=== PATIENT | female | born 1970 | race Caucasian/White ===

== ENCOUNTER 2017-10-01 09:06 | Inpatient (IN) | payer OTHER ==
[2017-10-01 09:10] VITALS: BMI 29.4
--- NOTE | 2017-10-01 10:33 | ED PDOC ---
HPI: Back Time Seen by Provider: 10/01/17 09:35 Chief Complaint (Nursing): Back Pain Chief Complaint (Provider): back pain History Per: Patient History/Exam Limitations: no limitations Current Symptoms Are (Timing): Still Present Quality Of Discomfort: Sharp Severity: Moderate Associated Symptoms: None Additional Complaint(s): 47yo female presents with worsening and severe low back pain associated with tingling to her legs. Has prior extensive spinal history with cervical fusion and spinal stimulator. Denies fever, trauma or urinary symptoms. Past Medical History Reviewed: Historical Data, Nursing Documentation, Vital Signs Vital Signs: Last Vital Signs Temp 98.5 F 10/01/17 09:10 Pulse 92 H 10/01/17 09:10 Resp 16 10/01/17 09:10 BP 140/93 H 10/01/17 09:10 Pulse Ox 98 10/01/17 09:10 - Medical History PMH: Arthritis, Crohn's Disease Denies: HIV, Chronic Kidney Disease - Surgical History Surgical History: Tonsillectomy Other surgeries: spinal surgeries Dr concepcion - Family History Family History: States: Unknown Family Hx - Social History Drugs: Denies - Allergies Allergies/Adverse Reactions: Allergies Allergy/AdvReac Type Severity Reaction Status Date / Time No Known Allergies Allergy Verified 10/01/17 09:20 Review of Systems Constitutional: Negative for: Fever, Chills ENT: Negative for: Throat Pain Respiratory: Negative for: Cough, Shortness of Breath Gastrointestinal: Negative for: Nausea Genitourinary Female: Negative for: Dysuria, Frequency Musculoskeletal: Positive for: Neck Pain, Back Pain, Leg Pain Skin: Negative for: Rash, Lesions, Jaundice Neurological: Positive for: Numbness. Negative for: Weakness, Headache, Dizziness Psych: Negative for: Suicidal ideation Physical Exam - Reviewed Nursing Documentation Reviewed: Yes Vital Signs Reviewed: Yes - Physical Exam Appears: Positive for: Well, Non-toxic Head Exam: Positive for: ATRAUMATIC Skin: Positive for: Normal Color, Warm, Dry Eye Exam: Positive for: Normal appearance Neck: Positive for: Decreased ROM Cardiovascular/Chest: Negative for: Tachycardia Respiratory: Negative for: Respiratory Distress Back: Positive for: Decreased ROM, Muscle Spasm Extremity: Positive for: Normal ROM Neurologic/Psych: Negative for: Motor/Sensory Deficits, Aphasia, Facial Droop - ECG O2 Sat by Pulse Oximetry: 98 Medical Decision Making Medical Decision Making: patient w persistent severe pain despite optimal outpatient pain management admit Dr Saavedra for further testing and workup, consult neurosurg basic labs ordered and pending Disposition - Clinical Impression Clinical Impression: Back pain - Patient ED Disposition Is Patient to be Admitted: Yes - Disposition Disposition Time: 10:30 Condition: STABLE Forms: [employer] (Cameroonian) - Pt Status Changed To: Hospital Disposition Of: Inpatient - Admit Certification Admit to Inpatient:: After my assessment, the patient will require hospitalization for at least two midnights. This is because of the severity of symptoms shown, intensity of services needed, and/or the medical risk in this patient being treated as an outpatient. - POA Present On Arrival: None
[2017-10-01 11:06] LABS: BASO # 0.1 K/uL (0.0-0.2); BASO % 0.9 % (0.0-2.0); EOS # 0.2 K/uL (0.0-0.7); EOS % 2.5 % (0.0-4.0); HEMOGLOBIN 14.5 g/dL (12.0-16.0); LYMPH # 1.7 K/uL (1.0-4.3); LYMPH % 26.7 % (20.0-40.0); MEAN CELL VOLUME 84.9 fl (81.0-99.0); MEAN CORPUSCULAR HEMOGLOBIN 29.5 pg (27.0-31.0); MEAN CORPUSCULAR HGB CONC 34.8 g/dL (33.0-37.0); MEAN PLATELET VOLUME 7.1 fl (7.2-11.7); MONO # 0.3 K/uL (0.0-0.8); MONO % 5.3 % (0.0-10.0); NEUT # 4.1 K/uL (1.8-7.0); NEUT % 64.6 % (50.0-75.0); RBC 4.9 Mil/uL (3.80-5.20); WHITE BLOOD COUNT 6.4 K/uL (4.8-10.8)
[2017-10-01 11:22] LABS: ALB/GLOB RATIO 1.2 (1.0-2.1); ALBUMIN 4.6 g/dL (3.5-5.0); ALT/SGPT 41 U/L (9-52); AST/SGOT 28 U/L (14-36); BLOOD UREA NITROGEN 17 mg/dl (7-17); CALCIUM 9.6 mg/dL (8.4-10.2); GFR AFRICAN-AMERICAN > 60; GFR NON-AFRICAN AMERICAN > 60
[2017-10-01 11:31] LABS: PARTIAL THROMBOPLASTIN TIME 32.7 Seconds (25.6-37.1); PROTHROMBIN TIME 11.3 Seconds (9.8-13.1)
[2017-10-01] MEDS ORDERED: TAPENTADOL HCL 50 MG PO PRN (11:46)
--- NOTE | 2017-10-01 11:51 | CP.PCM.HP ---
<Shaun Montenegro - Last Filed: 10/01/17 12:30> History of Present Illness - History of Present Illness History of Present Illness: 47yo female with PMhx of crohn's disease on remission and chronic pain, presents with worsening and severe low back pain associated with tingling and pain to her legs. Patient has prior extensive spinal history with cervical fusion and spinal stimulator and she has been able to control her neck and r/ arm pain with the stimulator that she has had for many years but has been unable to deal with her lower back pain recently, associated with paresthesias and radiating pain to LE. Denies fever, trauma, saddle anesthesia or urinary symptoms. Patient f/u with pain management and has been taking Tapentadol q4h and valium at bedtime with only partial improvement. As per patient she had MRI of lumbar spine done that shows lumbar disck herniations Present on Admission - Present on Admission Any Indicators Present on Admission: No Review of Systems - Review of Systems All systems: reviewed and no additional remarkable complaints except - Gastrointestinal Gastrointestinal: Dyspepsia - Musculoskeletal Musculoskeletal: Back Pain, Muscle Cramps, Neck Pain, Radiating Pain into Limb, Tingling Past Patient History - Infectious Disease Hx of Infectious Diseases: None - Tetanus Immunizations Tetanus Immunization: Unknown - Past Medical History & Family History Past Medical History?: Yes - Past Social History Drugs: Denies - CARDIAC Hx Cardiac Disorders: No - PULMONARY Hx Respiratory Disorders: No - NEUROLOGICAL Hx Neurological Disorder: No - HEENT Hx HEENT Problems: No - RENAL Hx Chronic Kidney Disease: No - ENDOCRINE/METABOLIC Hx Endocrine Disorders: No - HEMATOLOGICAL/ONCOLOGICAL Hx Human Immunodeficiency Virus (HIV): No - INTEGUMENTARY Hx Dermatological Problems: No - MUSCULOSKELETAL/RHEUMATOLOGICAL Hx Musculoskeletal Disorders: Yes (back/cervical surgery) - GASTROINTESTINAL Hx Crohn's Disease: Yes - GENITOURINARY/GYNECOLOGICAL Hx Genitourinary Disorders: No - PSYCHIATRIC Hx Psychophysiologic Disorder: No Hx Substance Use: No - SURGICAL HISTORY Hx Surgeries: Yes Hx Musculoskeletal Surgery: Yes Hx Tonsillectomy: Yes - ANESTHESIA Hx Anesthesia: Yes Hx Anesthesia Reactions: No Hx Malignant Hyperthermia: No Meds Allergies/Adverse Reactions: Allergies Allergy/AdvReac Type Severity Reaction Status Date / Time No Known Allergies Allergy Verified 10/01/17 09:20 Physical Exam - Constitutional Appears: Non-toxic, In Acute Distress (mild due to pain) - Eye Exam Eye Exam: EOMI, PERRL - ENT Exam ENT Exam: Mucous Membranes Moist - Respiratory Exam Respiratory Exam: Clear to Auscultation Bilateral, NORMAL BREATHING PATTERN. absent: Rales, Wheezes - Cardiovascular Exam Cardiovascular Exam: REGULAR RHYTHM, +S1, +S2. absent: Gallop - GI/Abdominal Exam GI & Abdominal Exam: Normal Bowel Sounds, Soft, Tenderness (Diffuse epigastric area). absent: Distended, Guarding, Rebound - Extremities Exam Extremities exam: Negative for: calf tenderness, pedal edema Additional comments: limited active ROM of B/L hip flexion due to weakness - Neurological Exam Neurological exam: Alert, Motor Sensory Deficit, Oriented x3 - Psychiatric Exam Psychiatric exam: Anxious - Skin Skin Exam: Normal Color, Warm Results - Vital Signs Recent Vital Signs: Last Vital Signs Temp 98.5 F 10/01/17 11:45 Pulse 74 10/01/17 11:45 Resp 18 10/01/17 11:45 BP 115/64 10/01/17 11:45 Pulse Ox 98 10/01/17 11:45 - Labs Result Diagrams: 10/01/17 11:01 10/01/17 11:01 Labs: Laboratory Results - last 24 hr 10/01/17 10/01/17 10/01/17 11:01 11:01 11:01 WBC 6.4 RBC 4.90 Hgb 14.5 Hct 41.6 MCV 84.9 D MCH 29.5 MCHC 34.8 RDW 14.0 Plt Count 359 MPV 7.1 L Neut % (Auto) 64.6 Lymph % (Auto) 26.7 [place] % (Auto) 5.3 Eos % (Auto) 2.5 Baso % (Auto) 0.9 Neut # (Auto) 4.1 Lymph # (Auto) 1.7 [place] # (Auto) 0.3 Eos # (Auto) 0.2 Baso # (Auto) 0.1 PT 11.3 INR 1.0 APTT 32.7 Sodium 142 Potassium 3.2 L Chloride 96 L Carbon Dioxide 29 Anion Gap 20 BUN 17 Creatinine 0.8 Est GFR ( Amer) > 60 Est GFR (Non-Af Amer) > 60 Random Glucose 108 H Calcium 9.6 Total Bilirubin 0.6 AST 28 ALT 41 Alkaline Phosphatase 68 Total Protein 8.3 H Albumin 4.6 Globulin 3.7 Albumin/Globulin Ratio 1.2 Assessment & Plan - Assessment and Plan (Free Text) Assessment: Intractable lower back pain with radiculopathy and functional limitations No PMHx of cardiac or resp disease ED labs reviewed: Unremarkable NeuroSx consult C/W Pain meds Preop labs ordered in advance for poss Sx intervention reg diet Patient is medically cleared for poss lumbar spine procedure if needed Will order one dose of tramadol stat since our Ph doesnt not have Tapentadol until patient's bring patient meds from home. <Osito Saavedra - Last Filed: 10/05/17 15:39> Results - Vital Signs Recent Vital Signs: Last Vital Signs Temp 97.9 F 10/04/17 15:55 Pulse 85 10/04/17 15:55 Resp 18 10/04/17 15:55 BP 117/74 10/04/17 15:55 Pulse Ox 98 10/04/17 15:55 - Labs Result Diagrams: 10/03/17 05:55 10/03/17 05:55 Assessment & Plan - Assessment and Plan (Free Text) Plan: I was present during evaluation and discussed with Dr Montenegro re plans of care , Osito Saavedra M.D.
[2017-10-01] MEDS ORDERED: Potassium Chloride 20 mEq ER Tab PO ONE ×2 (11:52→17:00)
[2017-10-01] MEDS: MESALAMINE 1.2 GM PO SCH ×2 (20:58→21:00)
[2017-10-01 21:39] LABS: BLOOD UREA NITROGEN 19 mg/dl (7-17); CALCIUM 9.5 mg/dL (8.4-10.2); GFR AFRICAN-AMERICAN > 60; GFR NON-AFRICAN AMERICAN > 60
[2017-10-01] MEDS ORDERED: NUCYNTA 75 MG PO PRN (22:00)
[2017-10-02] MEDS: Dextrose 5%/0.9% NS 1,000 ML IV SCH ×2 (05:47→22:30)
--- NOTE | 2017-10-02 07:37 | CP.PCM.CON ---
<Orlando Betts - Last Filed: 10/02/17 10:23> Meds Allergies/Adverse Reactions: Allergies Allergy/AdvReac Type Severity Reaction Status Date / Time No Known Allergies Allergy Verified 10/01/17 09:20 - Medications Medications: Current Medications Ascorbic Acid (Vitamin C 500 Mg Tab) 1 mg PO DAILY [facility] Last Admin: 10/02/17 09:11 Dose: Not Given Cholecalciferol (Vitamin D) 1,000 intlu PO DAILY [facility] Last Admin: 10/02/17 09:12 Dose: Not Given Cyanocobalamin (Vitamin B12 1000 Mcg Tab) 1,000 mcg PO DAILY [facility] Last Admin: 10/02/17 09:10 Dose: Not Given Diazepam (Valium) 10 mg PO HS PRN PRN Reason: Muscle spasm Last Admin: 10/01/17 22:40 Dose: 10 mg Gabapentin (Neurontin) 300 mg PO Q12 [facility] Last Admin: 10/02/17 09:10 Dose: Not Given Home Med (Mesalamine [Lialda]) 4.8 gm PO DAILY [facility] Last Admin: 10/02/17 09:10 Dose: Not Given Home Med (Patient's Own Medication) 1 unit PO Q6 PRN PRN Reason: Pain, severe (8-10) Dextrose/Sodium Chloride (Dextrose 5%/0.9% Ns 1000 Ml) 1,000 mls @ 60 mls/hr IV .[id number] [facility] Stop: 10/03/17 00:17 Last Admin: 10/02/17 05:47 Dose: 60 mls/hr Ibuprofen (Motrin Tab) 600 mg PO Q12 PRN PRN Reason: Pain, moderate (4-7) Ondansetron HCl (Zofran Inj) 4 mg IVP Q6 PRN PRN Reason: Nausea/Vomiting Last Admin: 10/01/17 15:13 Dose: 4 mg Pantoprazole Sodium (Protonix Ec Tab) 40 mg PO DAILY [facility] Last Admin: 10/02/17 09:10 Dose: Not Given Results - Vital Signs Recent Vital Signs: Last Vital Signs Temp 97.9 F 10/02/17 07:30 Pulse 65 10/02/17 07:30 Resp 18 10/02/17 07:30 BP 104/66 10/02/17 07:30 Pulse Ox 95 10/02/17 07:30 - Labs Result Diagrams: 10/01/17 11:01 10/01/17 21:15 Labs: Laboratory Results - last 24 hr 10/01/17 10/01/17 10/01/17 11:01 11:01 11:01 WBC 6.4 RBC 4.90 Hgb 14.5 Hct 41.6 MCV 84.9 D MCH 29.5 MCHC 34.8 RDW 14.0 Plt Count 359 MPV 7.1 L Neut % (Auto) 64.6 Lymph % (Auto) 26.7 [place] % (Auto) 5.3 Eos % (Auto) 2.5 Baso % (Auto) 0.9 Neut # (Auto) 4.1 Lymph # (Auto) 1.7 [place] # (Auto) 0.3 Eos # (Auto) 0.2 Baso # (Auto) 0.1 PT 11.3 INR 1.0 APTT 32.7 Sodium 142 Potassium 3.2 L Chloride 96 L Carbon Dioxide 29 Anion Gap 20 BUN 17 Creatinine 0.8 Est GFR ( Amer) > 60 Est GFR (Non-Af Amer) > 60 Random Glucose 108 H Calcium 9.6 Total Bilirubin 0.6 AST 28 ALT 41 Alkaline Phosphatase 68 Total Protein 8.3 H Albumin 4.6 Globulin 3.7 Albumin/Globulin Ratio 1.2 10/01/17 21:15 WBC RBC Hgb Hct MCV MCH MCHC RDW Plt Count MPV Neut % (Auto) Lymph % (Auto) [place] % (Auto) Eos % (Auto) Baso % (Auto) Neut # (Auto) Lymph # (Auto) [place] # (Auto) Eos # (Auto) Baso # (Auto) PT INR APTT Sodium 143 Potassium 3.8 Chloride 98 Carbon Dioxide 27 Anion Gap 22 H BUN 19 H Creatinine 0.9 Est GFR ( Amer) > 60 Est GFR (Non-Af Amer) > 60 Random Glucose 105 Calcium 9.5 Total Bilirubin AST ALT Alkaline Phosphatase Total Protein Albumin Globulin Albumin/Globulin Ratio Assessment & Plan (1) Lumbar pain with radiation down both legs Assessment and Plan: Lumbar MRI was reviewed in correlation to clinical findings. It was determined that the pathology was predominantly found at levels L4-5. Decision was made to perform L4-5 laminectomy, possible laminectomy of other levels. Status: Acute <Rashel Martinez Jr. - Last Filed: 10/02/17 12:26> History of Present Illness - History of Present Illness History of Present Illness: This is a 47 y/o female with PMHx of chron's dz ( in remission) , chronic neck and back pain s/p cervical and lumbar surgeries in the past few years who presents with renewed LBP that has progressed in severity since Fall 2016. She states that she has LBP that is usually 7/10 radiates to BL knees R>L and associated paresthesias and weakness. The symptoms have affected her daily life , disabling her from ambulating longer distances and daily activities. She states that she has attempted conservative measures as recommended but without relief. She denies bladder or bowel incontinence Past Patient History - Infectious Disease Hx of Infectious Diseases: None - Tetanus Immunizations Tetanus Immunization: Unknown - Past Medical History & Family History Past Medical History?: Yes - Past Social History Drugs: Denies - CARDIAC Hx Cardiac Disorders: No - PULMONARY Hx Respiratory Disorders: No - NEUROLOGICAL Hx Neurological Disorder: No - HEENT Hx HEENT Problems: No - RENAL Hx Chronic Kidney Disease: No - ENDOCRINE/METABOLIC Hx Endocrine Disorders: No - HEMATOLOGICAL/ONCOLOGICAL Hx Human Immunodeficiency Virus (HIV): No - INTEGUMENTARY Hx Dermatological Problems: No - MUSCULOSKELETAL/RHEUMATOLOGICAL Hx Musculoskeletal Disorders: Yes (back/cervical surgery) - GASTROINTESTINAL Hx Crohn's Disease: Yes - GENITOURINARY/GYNECOLOGICAL Hx Genitourinary Disorders: No - PSYCHIATRIC Hx Psychophysiologic Disorder: No Hx Substance Use: No - SURGICAL HISTORY Hx Surgeries: Yes Hx Musculoskeletal Surgery: Yes Hx Tonsillectomy: Yes - ANESTHESIA Hx Anesthesia: Yes Hx Anesthesia Reactions: No Hx Malignant Hyperthermia: No Meds - Medications Medications: Current Medications Ascorbic Acid (Vitamin C 500 Mg Tab) 1 mg PO DAILY [facility] Cholecalciferol (Vitamin D) 1,000 intlu PO DAILY [facility] Cyanocobalamin (Vitamin B12 1000 Mcg Tab) 1,000 mcg PO DAILY [facility] Diazepam (Valium) 10 mg PO HS PRN PRN Reason: Muscle spasm Last Admin: 10/01/17 22:40 Dose: 10 mg Gabapentin (Neurontin) 300 mg PO Q12 [facility] Last Admin: 10/01/17 20:59 Dose: 300 mg Home Med (Mesalamine [Lialda]) 4.8 gm PO DAILY [facility] Last Admin: 10/01/17 21:00 Dose: 4.8 gm Home Med (Patient's Own Medication) 1 unit PO Q6 PRN PRN Reason: Pain, severe (8-10) Dextrose/Sodium Chloride (Dextrose 5%/0.9% Ns 1000 Ml) 1,000 mls @ 60 mls/hr IV .[id number] [facility] Stop: 10/03/17 00:17 Last Admin: 10/02/17 05:47 Dose: 60 mls/hr Ibuprofen (Motrin Tab) 600 mg PO Q12 PRN PRN Reason: Pain, moderate (4-7) Ondansetron HCl (Zofran Inj) 4 mg IVP Q6 PRN PRN Reason: Nausea/Vomiting Last Admin: 10/01/17 15:13 Dose: 4 mg Pantoprazole Sodium (Protonix Ec Tab) 40 mg PO DAILY [facility] Physical Exam - Constitutional Appears: No Acute Distress - Neurological Exam Additional comments: A&OX3 CN intact TRAORE positive SLR BL R>L IP : 4/5 pain limited quad 4/5 HS: 5 PF/DF:L 5 BL sensation : decreased to LT on anterior R thigh neg clonus Results - Vital Signs Recent Vital Signs: Last Vital Signs Temp 97.9 F 10/02/17 07:30 Pulse 65 10/02/17 07:30 Resp 18 10/02/17 07:30 BP 104/66 10/02/17 07:30 Pulse Ox 95 10/02/17 07:30 - Labs Result Diagrams: 10/01/17 11:01 10/01/17 21:15 Labs: Laboratory Results - last 24 hr 10/01/17 10/01/17 10/01/17 11:01 11:01 11:01 WBC 6.4 RBC 4.90 Hgb 14.5 Hct 41.6 MCV 84.9 D MCH 29.5 MCHC 34.8 RDW 14.0 Plt Count 359 MPV 7.1 L Neut % (Auto) 64.6 Lymph % (Auto) 26.7 [place] % (Auto) 5.3 Eos % (Auto) 2.5 Baso % (Auto) 0.9 Neut # (Auto) 4.1 Lymph # (Auto) 1.7 [place] # (Auto) 0.3 Eos # (Auto) 0.2 Baso # (Auto) 0.1 PT 11.3 INR 1.0 APTT 32.7 Sodium 142 Potassium 3.2 L Chloride 96 L Carbon Dioxide 29 Anion Gap 20 BUN 17 Creatinine 0.8 Est GFR ( Amer) > 60 Est GFR (Non-Af Amer) > 60 Random Glucose 108 H Calcium 9.6 Total Bilirubin 0.6 AST 28 ALT 41 Alkaline Phosphatase 68 Total Protein 8.3 H Albumin 4.6 Globulin 3.7 Albumin/Globulin Ratio 1.2 10/01/17 21:15 WBC RBC Hgb Hct MCV MCH MCHC RDW Plt Count MPV Neut % (Auto) Lymph % (Auto) [place] % (Auto) Eos % (Auto) Baso % (Auto) Neut # (Auto) Lymph # (Auto) [place] # (Auto) Eos # (Auto) Baso # (Auto) PT INR APTT Sodium 143 Potassium 3.8 Chloride 98 Carbon Dioxide 27 Anion Gap 22 H BUN 19 H Creatinine 0.9 Est GFR ( Amer) > 60 Est GFR (Non-Af Amer) > 60 Random Glucose 105 Calcium 9.5 Total Bilirubin AST ALT Alkaline Phosphatase Total Protein Albumin Globulin Albumin/Globulin Ratio Assessment & Plan - Assessment and Plan (Free Text) Assessment: patient presented [place] [facility] with above mentioned S&S she presented in extremis unable to carry out daily activities due to severe pain. Due to her known LBP and pathology on imaging. Surgical intervention was suggested. Imaging reviewed and d/w patient. risks, benefits and alternatives explained to the patient. Risks such and infection hemorrhage, CSF leak, weakness, numbness failure of surgery and/or need for further surgery.
[2017-10-02] MEDS ORDERED: Lidocaine 1% Inj (20ml) ONE (08:00)
[2017-10-02] MEDS ORDERED: Lidocaine 2% w Epi 1:100,000 Inj IJ ONE (08:00)
[2017-10-02] MEDS ORDERED: Absorbable Gelatin Sponge Size 100 ONE (08:00)
[2017-10-02] MEDS ORDERED: Bacitracin Ointment 30 GM TUBE ONE (08:00)
[2017-10-02] MEDS ORDERED: Bupivacaine HCl 0.5% PF (30 ml) Inj ONE (08:00)
[2017-10-02] MEDS ORDERED: Thrombin Topical 5,000 Int Units Spray Kit ONE (08:01)
[2017-10-02] MEDS ORDERED: Phenylephrine 10 mg/ml Inj ONE (08:06)
[2017-10-02] MEDS ORDERED: Rocuronium 10 mg/ml (5 ml) ONE (08:16)
[2017-10-02] MEDS ORDERED: Succinylcholine 200 mg/10 ml Inj IV ONE (08:16)
[2017-10-02] MEDS ORDERED: Propofol 10 mg/ml Inj (20 ML) ONE (08:16)
[2017-10-02] MEDS ORDERED: Lidocaine 2% Jelly (5 ml) TOP ONE (08:21)
[2017-10-02] MEDS: MESALAMINE 1.2 GM PO SCH ×2 (09:10→16:39)
[2017-10-02] MEDS: Pantoprazole 40 mg EC Tab PO SCH ×2 (09:10→16:40)
[2017-10-02] MEDS: Cholecalciferol 1,000 INTLU TAB PO SCH ×2 (09:12→16:41)
[2017-10-02] MEDS ORDERED: Lactated Ringer's 1,000 ML IV ONE ×2 (09:45→11:43)
[2017-10-02] MEDS ORDERED: Midazolam 2 MG/2 ML VIAL ONE (09:57)
[2017-10-02] MEDS ORDERED: Lidocaine 2% w Epi 1:200,000 Pf Inj IJ ONE (10:12)
[2017-10-02] MEDS ORDERED: Absorbable Gelatin Sponge Size 100 TP ONE (10:12)
[2017-10-02] MEDS ORDERED: HEMOSTATIC MATRIX 10 ML DIS.NEEDLE TOP ONE (10:12)
[2017-10-02] MEDS ORDERED: Thrombin Topical 5,000 Int Units Spray Kit TOP ONE ×2 (10:12)
[2017-10-02] MEDS ORDERED: Desflurane Inhalation Anesthetic Liq (240 ml) ONE (10:17)
[2017-10-02] MEDS ORDERED: Ketamine 50 mg/ml Inj (10 ml) ONE (10:19)
[2017-10-02] MEDS ORDERED: Dexamethasone 4 mg/1 ml ONE (10:35)
--- NOTE | 2017-10-02 10:42 | CP.PCM.PN ---
<Shaun Montenegro - Last Filed: 10/02/17 11:50> Subjective - Date & Time of Evaluation Date of Evaluation: 10/02/17 Time of Evaluation: 08:55 - Subjective Subjective: Evaluated before Sx this morning. No acute distress, alert, awake in good spirits at bedside. No event overnight, Afebrile, pain controlled with meds. Denies vomiting, nausea. Objective - Vital Signs/Intake and Output Vital Signs (last 24 hours): Temp Pulse Resp BP Pulse Ox 97.9 F 65 18 104/66 95 10/02/17 07:30 10/02/17 07:30 10/02/17 07:30 10/02/17 07:30 10/02/17 07:30 - Medications Medications: Current Medications Ascorbic Acid (Vitamin C 500 Mg Tab) 1 mg PO DAILY [facility] Last Admin: 10/02/17 09:11 Dose: Not Given Cholecalciferol (Vitamin D) 1,000 intlu PO DAILY [facility] Last Admin: 10/02/17 09:12 Dose: Not Given Cyanocobalamin (Vitamin B12 1000 Mcg Tab) 1,000 mcg PO DAILY [facility] Last Admin: 10/02/17 09:10 Dose: Not Given Diazepam (Valium) 10 mg PO HS PRN PRN Reason: Muscle spasm Last Admin: 10/01/17 22:40 Dose: 10 mg Gabapentin (Neurontin) 300 mg PO Q12 [facility] Last Admin: 10/02/17 09:10 Dose: Not Given Home Med (Mesalamine [Lialda]) 4.8 gm PO DAILY [facility] Last Admin: 10/02/17 09:10 Dose: Not Given Home Med (Patient's Own Medication) 1 unit PO Q6 PRN PRN Reason: Pain, severe (8-10) Dextrose/Sodium Chloride (Dextrose 5%/0.9% Ns 1000 Ml) 1,000 mls @ 60 mls/hr IV .[id number] [facility] Stop: 10/03/17 00:17 Last Admin: 10/02/17 05:47 Dose: 60 mls/hr Ibuprofen (Motrin Tab) 600 mg PO Q12 PRN PRN Reason: Pain, moderate (4-7) Ondansetron HCl (Zofran Inj) 4 mg IVP Q6 PRN PRN Reason: Nausea/Vomiting Last Admin: 10/01/17 15:13 Dose: 4 mg Pantoprazole Sodium (Protonix Ec Tab) 40 mg PO DAILY [facility] Last Admin: 10/02/17 09:10 Dose: Not Given - Labs Labs: 10/01/17 11:01 10/01/17 21:15 PT 11.3 Seconds (9.8-13.1) 10/01/17 11:01 INR 1.0 (0.9-1.2) 10/01/17 11:01 APTT 32.7 Seconds (25.6-37.1) 10/01/17 11:01 - Constitutional Appears: Non-toxic, No Acute Distress - Eye Exam Eye Exam: PERRL - ENT Exam ENT Exam: Mucous Membranes Moist - Respiratory Exam Respiratory Exam: Clear to Ausculation Bilateral, NORMAL BREATHING PATTERN. absent: Decreased Breath Sounds, Rales, Respiratory Distress - Cardiovascular Exam Cardiovascular Exam: REGULAR RHYTHM, +S1, +S2. absent: Gallop - GI/Abdominal Exam GI & Abdominal Exam: Soft, Normal Bowel Sounds. absent: Distended, Guarding, Tenderness - Extremities Exam Extremities Exam: absent: Calf Tenderness, Pedal Edema Additional comments: limited ROM hips due to lower back pain - Neurological Exam Neurological Exam: Alert, Awake, Oriented x3 - Psychiatric Exam Psychiatric exam: Normal Affect, Normal Mood - Skin Skin Exam: Normal Color, Warm Assessment and Plan - Assessment and Plan (Free Text) Assessment: Intractable lower back pain with functional limitations Evaluated by NeurSx and scheduled for lumbar laminectomy this morning NPO since midnight Pain control Will revaluate after Sx. <Osito Saavedra - Last Filed: 10/05/17 15:40> Objective - Vital Signs/Intake and Output Vital Signs (last 24 hours): Temp Pulse Resp BP Pulse Ox 97.9 F 85 18 117/74 98 10/04/17 15:55 10/04/17 15:55 10/04/17 15:55 10/04/17 15:55 10/04/17 15:55 - Labs Labs: 10/03/17 05:55 10/03/17 05:55 PT 11.3 Seconds (9.8-13.1) 10/01/17 11:01 INR 1.0 (0.9-1.2) 10/01/17 11:01 APTT 32.7 Seconds (25.6-37.1) 10/01/17 11:01 Assessment and Plan - Assessment and Plan (Free Text) Plan: I was present during evaluation and discussed with Dr Montenegro re plans of care and tx. Osito Saavedra M.D.
--- NOTE | 2017-10-02 11:09 | RAD ---
PROCEDURE: Intraoperative Fluoroscopy. HISTORY: LUMBAR LAMINECTOMY FINDINGS: Fluoroscopic assistance was provided. 7.2 seconds fluoroscopy time utilized during this procedure. Radiation dose = 2.24 mGy Please refer to the operative report for additional details.
[2017-10-02] MEDS ORDERED: Normosol-R 1000 ML 1,000 ML IV ONE (11:43)
[2017-10-02] MEDS ORDERED: Naloxone 0.4 mg/ml Inj (Adult) IVP PRN (11:48)
--- NOTE | 2017-10-02 12:37 | PCM.SURG1 ---
Surgeon's Initial Post Op Note - Surgeon's Notes Surgeon: Benton Juares Warehouse Loader: Cherri CARR Type of Anesthesia: General Endo Anesthesia Administered By: Rip Pre-Operative Diagnosis: lumbar HNP Operative Findings: found to have nerve root cmopression and herniated disc at R L4-5 level Post-Operative Diagnosis: as above Operation Performed: decompressive laminectomy L4-5 with microdiscectomy Specimen/Specimens Removed: disc Estimated Blood Loss: EBL {In ML}: 20 Blood Products Given: N/A Drains Used: No Drains, Nick Mauricio (x1 ) Date of Surgery/Procedure: 10/02/17 Time of Surgery/Procedure: 10:00
[2017-10-02] MEDS: HYDROmorphone 0.5 mg/0.5 ml ISec IVP PRN ×2 (13:00→13:07)
[2017-10-02] MEDS: Lactated Ringer's 1,000 ML IV SCH ×2 (16:32→21:35)
--- NOTE | 2017-10-02 18:11 | OP ---
PROCEDURE DATE: 10/02/2017 PREOPERATIVE DIAGNOSIS: Lumbar spondylosis. POSTOPERATIVE DIAGNOSIS: Lumbar spondylosis. PROCEDURE: L4-L5 lumbar laminectomy. SURGEON: Benton Juares MD MEDICINAL CHEMIST: Rashel Martinez. Rashel Martinez is the physician ex assistant/program director who stayed throughout the case from the beginning to the end, helped me perform the surgery. Rashel Martinez. Rashel Martinez is the physician ex assistant/program director who stayed throughout the case from beginning to the end, helped me perform the surgery. Fluoroscopy has been used and microscopy has been used. DESCRIPTION OF PROCEDURE: The patient was brought to the operating room. Anesthetized with general endotracheal anesthesia. Placed in a prone position on the Nick table. Care was taken to protect all pressure points. Back of the lumbar area thoroughly prepped and draped in sterile manner after marking was consent for lumbar laminectomy at L4-L5. After prepping and draping the area, skin has been incised. Bleeding skin has been controlled by bipolar heavy equipment rental associate. After using a Bovie heavy equipment rental associate, paraspinal muscles have been detached, attachments of spinous process and lamina of L4-L5 bilaterally. Identification levels has been done with help of a fluoroscopy. By using a Leksell rongeur, the spinous process of L4-L5 have been removed. By using a high-speed drill lamina of L4-L5 and medial part of the facets of the L4-L5 have been drilled. By using a fine Kerrison punch, thinned out the lamina, medial part of the facets, buckled, thickened, and ligamentum flavum has been removed. Decompression has been achieved. After that hemostasis best achieved. Nick drain was placed in the wound. Brought out through a separate stab neck skin incision. Muscles and fascia were closed with 1 Vicryl, subcutaneous tissue with 3 Vicryl, skin had been closed with intradermal 3 Vicryl stitches. The patient tolerated the procedure. After the procedure, mobilized to the recovery room in stabilized condition. Benton Juares MD
[2017-10-03 06:50] LABS: BLOOD UREA NITROGEN 14 mg/dl (7-17); CALCIUM 8.8 mg/dL (8.4-10.2); GFR AFRICAN-AMERICAN > 60; GFR NON-AFRICAN AMERICAN > 60
[2017-10-03 07:06] LABS: MEAN CELL VOLUME 87.2 fl (81.0-99.0); MEAN CORPUSCULAR HEMOGLOBIN 29.5 pg (27.0-31.0); MEAN CORPUSCULAR HGB CONC 33.8 g/dL (33.0-37.0); RBC 4.05 Mil/uL (3.80-5.20); RED CELL DISTRIBUTION WIDTH 14.3 % (11.5-14.5)
[2017-10-03] MEDS: Cholecalciferol 1,000 INTLU TAB PO SCH (08:35)
[2017-10-03] MEDS: Pantoprazole 40 mg EC Tab PO SCH (08:35)
[2017-10-03] MEDS: MESALAMINE 1.2 GM PO SCH (08:35)
--- NOTE | 2017-10-03 08:46 | CP.PCM.PN ---
Subjective - Date & Time of Evaluation Date of Evaluation: 10/03/17 Time of Evaluation: 08:46 - Subjective Subjective: Patient seen and examined at bedside comfortable. Pain is well controlled. Tolerating diet well. No acute events overnight. Objective - Vital Signs/Intake and Output Vital Signs (last 24 hours): Temp Pulse Resp BP Pulse Ox 98.5 F 73 18 119/67 98 10/03/17 07:36 10/03/17 07:36 10/03/17 07:36 10/03/17 07:36 10/03/17 07:36 Intake and Output: 10/03/17 10/03/17 06:59 18:59 Intake Total 1200 Output Total 950 Balance 250 - Medications Medications: Current Medications Ascorbic Acid (Vitamin C 500 Mg Tab) 500 mg PO DAILY [facility] Last Admin: 10/03/17 08:35 Dose: 500 mg Cholecalciferol (Vitamin D) 1,000 intlu PO DAILY [facility] Last Admin: 10/03/17 08:35 Dose: 1,000 intlu Cyanocobalamin (Vitamin B12 1000 Mcg Tab) 1,000 mcg PO DAILY [facility] Last Admin: 10/03/17 08:35 Dose: 1,000 mcg Diazepam (Valium) 10 mg PO HS PRN PRN Reason: Muscle spasm Last Admin: 10/01/17 22:40 Dose: 10 mg Docusate Sodium (Colace) 100 mg PO BID [facility] Last Admin: 10/03/17 08:34 Dose: 100 mg Gabapentin (Neurontin) 300 mg PO Q12 [facility] Last Admin: 10/03/17 08:35 Dose: 300 mg Home Med (Mesalamine [Lialda]) 4.8 gm PO DAILY [facility] Last Admin: 10/03/17 08:35 Dose: 4.8 gm Home Med (Patient's Own Medication) 1 unit PO Q6 PRN PRN Reason: Pain, severe (8-10) Lactated Ringer's (Lactated Ringer's) 1,000 mls @ 100 mls/hr IV .Q10H [facility] Last Admin: 10/02/17 21:35 Dose: 100 mls/hr Cefazolin Sodium 1 gm/ (Dextrose) 100 mls @ 100 mls/hr IVPB Q8 [facility]ANCY PRN Reason: Protocol Last Admin: 10/03/17 08:34 Dose: 100 mls/hr Ibuprofen (Motrin Tab) 600 mg PO Q12 PRN PRN Reason: Pain, moderate (4-7) Morphine Sulfate (Morphine Gold Stamper 1 Mg/Ml) 0 mg IV PRN PRN; Protocol PRN Reason: Pain, moderate (4-7) Last Admin: 10/02/17 13:45 Dose: 0 mg Naloxone HCl (Narcan) 0.1 mg IVP Q2M PRN PRN Reason: Sedation Ondansetron HCl (Zofran Inj) 4 mg IVP Q6 PRN PRN Reason: Nausea/Vomiting Last Admin: 10/01/17 15:13 Dose: 4 mg Pantoprazole Sodium (Protonix Ec Tab) 40 mg PO DAILY [facility] Last Admin: 10/03/17 08:35 Dose: 40 mg - Labs Labs: 10/03/17 05:55 10/03/17 05:55 PT 11.3 Seconds (9.8-13.1) 10/01/17 11:01 INR 1.0 (0.9-1.2) 10/01/17 11:01 APTT 32.7 Seconds (25.6-37.1) 10/01/17 11:01 - Back Exam Additional comments: Dressing clean dry and intact. BRITTANI drain intact with moderate sangiunous drainage. - Neurological Exam Neurological Exam: Alert, Awake, Oriented x3 Neuro motor strength exam: Left Lower Extremity: 4, Right Lower Extremity: 4 Additional comments: Gross NVI distally BLE Assessment and Plan (1) Lumbar pain with radiation down both legs Assessment & Plan: Patient is POD#1 from L4-5 laminectomy and microdiscectomy -pain control, recommend d/c [facility] and transition of prn meds -monitor drain output, will not remove today, continue postop abx until drain d/ c'd -PT/OT WBAT -case and plan d/w Dr. Juares in agreement Status: Acute
--- NOTE | 2017-10-03 11:43 | CP.PCM.PN ---
<Shaun Montenegro - Last Filed: 10/03/17 11:45> Subjective - Date & Time of Evaluation Date of Evaluation: 10/03/17 Time of Evaluation: 10:50 - Subjective Subjective: Stable, seated in chair. S/P Lumbar laminectomy POD1. Doing better. Started PT this morning. Pain controlled. Denies nausea, vomiting, CP, SOB, palpitations. Drainage in place/ serosanguineous Objective - Vital Signs/Intake and Output Vital Signs (last 24 hours): Temp Pulse Resp BP Pulse Ox 98.5 F 73 18 119/67 98 10/03/17 09:00 10/03/17 09:00 10/03/17 09:00 10/03/17 09:00 10/03/17 09:00 Intake and Output: 10/03/17 10/03/17 06:59 18:59 Intake Total 1200 Output Total 950 Balance 250 - Medications Medications: Current Medications Ascorbic Acid (Vitamin C 500 Mg Tab) 500 mg PO DAILY [facility] Last Admin: 10/03/17 08:35 Dose: 500 mg Cholecalciferol (Vitamin D) 1,000 intlu PO DAILY [facility] Last Admin: 10/03/17 08:35 Dose: 1,000 intlu Cyanocobalamin (Vitamin B12 1000 Mcg Tab) 1,000 mcg PO DAILY [facility] Last Admin: 10/03/17 08:35 Dose: 1,000 mcg Diazepam (Valium) 10 mg PO HS PRN PRN Reason: Muscle spasm Last Admin: 10/01/17 22:40 Dose: 10 mg Docusate Sodium (Colace) 100 mg PO BID [facility] Last Admin: 10/03/17 08:34 Dose: 100 mg Gabapentin (Neurontin) 300 mg PO Q12 [facility] Last Admin: 10/03/17 08:35 Dose: 300 mg Home Med (Mesalamine [Lialda]) 4.8 gm PO DAILY [facility] Last Admin: 10/03/17 08:35 Dose: 4.8 gm Home Med (Patient's Own Medication) 1 unit PO Q6 PRN PRN Reason: Pain, severe (8-10) Hydromorphone HCl (Dilaudid) 1 mg IVP Q4 PRN PRN Reason: Pain, severe (8-10) Lactated Ringer's (Lactated Ringer's) 1,000 mls @ 100 mls/hr IV .Q10H [facility] Last Admin: 10/02/17 21:35 Dose: 100 mls/hr Cefazolin Sodium 1 gm/ (Dextrose) 100 mls @ 100 mls/hr IVPB Q8 NANCY PRN Reason: Protocol Last Admin: 10/03/17 08:34 Dose: 100 mls/hr Ibuprofen (Motrin Tab) 600 mg PO Q12 PRN PRN Reason: Pain, moderate (4-7) Last Admin: 10/03/17 10:43 Dose: 600 mg Naloxone HCl (Narcan) 0.1 mg IVP Q2M PRN PRN Reason: Sedation Ondansetron HCl (Zofran Inj) 4 mg IVP Q6 PRN PRN Reason: Nausea/Vomiting Last Admin: 10/01/17 15:13 Dose: 4 mg Pantoprazole Sodium (Protonix Ec Tab) 40 mg PO DAILY [facility] Last Admin: 10/03/17 08:35 Dose: 40 mg - Labs Labs: 10/03/17 05:55 10/03/17 05:55 PT 11.3 Seconds (9.8-13.1) 10/01/17 11:01 INR 1.0 (0.9-1.2) 10/01/17 11:01 APTT 32.7 Seconds (25.6-37.1) 10/01/17 11:01 - Constitutional Appears: Non-toxic, No Acute Distress - Eye Exam Eye Exam: PERRL - ENT Exam ENT Exam: Mucous Membranes Moist - Respiratory Exam Respiratory Exam: Clear to Ausculation Bilateral, NORMAL BREATHING PATTERN. absent: Rales, Respiratory Distress - Cardiovascular Exam Cardiovascular Exam: REGULAR RHYTHM, +S1, +S2. absent: Gallop - GI/Abdominal Exam GI & Abdominal Exam: Soft, Normal Bowel Sounds. absent: Guarding, Rigid, Rebound - Extremities Exam Extremities Exam: Normal Capillary Refill. absent: Calf Tenderness, Pedal Edema - Neurological Exam Neurological Exam: Alert, Awake, Oriented x3 - Psychiatric Exam Psychiatric exam: Normal Affect, Normal Mood - Skin Skin Exam: Normal Color, Warm Assessment and Plan - Assessment and Plan (Free Text) Assessment: s/p lumbar laminectomy POD1 Stable. C/W PT/rehab C/W pain control/supportive measure NeuroSx consult appreciated Patient has stairs to climb at home Still moderate amount of Sx drainage. Normal appearing DC planning depending on patient's ability to progress on PT and drainage amount <Osito Saavedra - Last Filed: 10/05/17 15:42> Objective - Vital Signs/Intake and Output Vital Signs (last 24 hours): Temp Pulse Resp BP Pulse Ox 97.9 F 85 18 117/74 98 10/04/17 15:55 10/04/17 15:55 10/04/17 15:55 10/04/17 15:55 10/04/17 15:55 - Labs Labs: 10/03/17 05:55 10/03/17 05:55 PT 11.3 Seconds (9.8-13.1) 10/01/17 11:01 INR 1.0 (0.9-1.2) 10/01/17 11:01 APTT 32.7 Seconds (25.6-37.1) 10/01/17 11:01 Assessment and Plan - Assessment and Plan (Free Text) Plan: I was present during evaluation and discussed with Dr Montenegro re plans of care and tx. Osito Saavedra M.D>
[2017-10-03] MEDS: HYDROmorphone 0.5 mg/0.5 ml ISec IVP PRN ×2 (13:31→22:40)
[2017-10-04] MEDS: HYDROmorphone 0.5 mg/0.5 ml ISec IVP PRN ×2 (07:51→15:10)
--- NOTE | 2017-10-04 08:08 | CP.PCM.PN ---
Subjective - Date & Time of Evaluation Date of Evaluation: 10/04/17 Time of Evaluation: 08:06 - Subjective Subjective: Patient complaining of continued severe back pain, but she says the new medication they started yesterday is helping a lot. Denies CP/SOB/dizziness/ numbness/tingling. Objective - Vital Signs/Intake and Output Vital Signs (last 24 hours): Temp Pulse Resp BP Pulse Ox 98.1 F 78 18 118/70 97 10/04/17 07:29 10/04/17 07:29 10/04/17 07:29 10/04/17 07:29 10/04/17 07:29 Intake and Output: 10/04/17 10/04/17 06:59 18:59 Output Total 80 Balance -80 - Medications Medications: Current Medications Ascorbic Acid (Vitamin C 500 Mg Tab) 500 mg PO DAILY [facility] Last Admin: 10/03/17 08:35 Dose: 500 mg Cholecalciferol (Vitamin D) 1,000 intlu PO DAILY [facility] Last Admin: 10/03/17 08:35 Dose: 1,000 intlu Cyanocobalamin (Vitamin B12 1000 Mcg Tab) 1,000 mcg PO DAILY [facility] Last Admin: 10/03/17 08:35 Dose: 1,000 mcg Diazepam (Valium) 10 mg PO HS PRN PRN Reason: Muscle spasm Last Admin: 10/01/17 22:40 Dose: 10 mg Docusate Sodium (Colace) 100 mg PO BID [facility] Last Admin: 10/03/17 16:29 Dose: 100 mg Gabapentin (Neurontin) 300 mg PO Q12 [facility] Last Admin: 10/03/17 21:39 Dose: 300 mg Home Med (Mesalamine [Lialda]) 4.8 gm PO DAILY [facility] Last Admin: 10/03/17 08:35 Dose: 4.8 gm Home Med (Patient's Own Medication) 1 unit PO Q6 PRN PRN Reason: Pain, severe (8-10) Hydromorphone HCl (Dilaudid) 1 mg IVP Q4 PRN PRN Reason: Pain, severe (8-10) Last Admin: 10/04/17 07:51 Dose: 1 mg Lactated Ringer's (Lactated Ringer's) 1,000 mls @ 100 mls/hr IV .Q10H [facility] Last Admin: 10/02/17 21:35 Dose: 100 mls/hr Cefazolin Sodium 1 gm/ (Dextrose) 100 mls @ 100 mls/hr IVPB Q8 NANCY PRN Reason: Protocol Last Admin: 10/04/17 01:20 Dose: 100 mls/hr Ibuprofen (Motrin Tab) 600 mg PO Q12 PRN PRN Reason: Pain, moderate (4-7) Last Admin: 10/03/17 10:43 Dose: 600 mg Naloxone HCl (Narcan) 0.1 mg IVP Q2M PRN PRN Reason: Sedation Ondansetron HCl (Zofran Inj) 4 mg IVP Q6 PRN PRN Reason: Nausea/Vomiting Last Admin: 10/01/17 15:13 Dose: 4 mg Pantoprazole Sodium (Protonix Ec Tab) 40 mg PO DAILY [facility] Last Admin: 10/03/17 08:35 Dose: 40 mg - Labs Labs: 10/03/17 05:55 10/03/17 05:55 PT 11.3 Seconds (9.8-13.1) 10/01/17 11:01 INR 1.0 (0.9-1.2) 10/01/17 11:01 APTT 32.7 Seconds (25.6-37.1) 10/01/17 11:01 - Back Exam Additional comments: approx 15-20cc in BRITTANI, per RN approx 50 cc in drain from overnight, but drain leaked all over bed. 5/5 B great toe ext/DF/PF/knee flex/ext sensation intact L2-S1 calves soft NT neg homans +DP/PT Pulses Assessment and Plan (1) Lumbar spondylosis Assessment & Plan: POD#2 s/p L4/L5 laminectomy d/c drain per Dr. Juares plan discharge home PT/OT pain meds VTE proph, encourage ambulation and OOB f/u Dr. Juares approx 2 weeks call for appointment Status: Acute
[2017-10-04] MEDS: MESALAMINE 1.2 GM PO SCH (09:38)
[2017-10-04] MEDS: Pantoprazole 40 mg EC Tab PO SCH (09:38)
[2017-10-04] MEDS: Cholecalciferol 1,000 INTLU TAB PO SCH (09:39)
--- NOTE | 2017-10-04 13:08 | CP.PCM.DIS ---
<Shaun Montenegro - Last Filed: 10/04/17 13:05> Provider - Provider Date of Admission: 10/01/17 10:27 Attending physician: Osito Saavedra MD Consults: Neurosurgery Time Spent in preparation of Discharge (in minutes): 30 Diagnosis - Discharge Diagnosis (1) Intractable back pain Status: Chronic Comment: S/p lumbar laminectomy (2) Lumbar pain with radiation down both legs Status: Chronic Hospital Course - Lab Results Lab Results: Most Recent Lab Values WBC 10.0 K/uL (4.8-10.8) D 10/03/17 05:55 RBC 4.05 Mil/uL (3.80-5.20) 10/03/17 05:55 Hgb 12.0 g/dL (12.0-16.0) D 10/03/17 05:55 Hct 35.3 % (34.0-47.0) 10/03/17 05:55 MCV 87.2 fl (81.0-99.0) D 10/03/17 05:55 MCH 29.5 pg (27.0-31.0) 10/03/17 05:55 MCHC 33.8 g/dL (33.0-37.0) 10/03/17 05:55 RDW 14.3 % (11.5-14.5) 10/03/17 05:55 Plt Count 322 K/uL (130-400) 10/03/17 05:55 MPV 7.1 fl (7.2-11.7) L 10/01/17 11:01 Neut % (Auto) 64.6 % (50.0-75.0) 10/01/17 11:01 Lymph % (Auto) 26.7 % (20.0-40.0) 10/01/17 11:01 [place] % (Auto) 5.3 % (0.0-10.0) 10/01/17 11:01 Eos % (Auto) 2.5 % (0.0-4.0) 10/01/17 11:01 Baso % (Auto) 0.9 % (0.0-2.0) 10/01/17 11:01 Neut # (Auto) 4.1 K/uL (1.8-7.0) 10/01/17 11:01 Lymph # (Auto) 1.7 K/uL (1.0-4.3) 10/01/17 11:01 [place] # (Auto) 0.3 K/uL (0.0-0.8) 10/01/17 11:01 Eos # (Auto) 0.2 K/uL (0.0-0.7) 10/01/17 11:01 Baso # (Auto) 0.1 K/uL (0.0-0.2) 10/01/17 11:01 PT 11.3 Seconds (9.8-13.1) 10/01/17 11:01 INR 1.0 (0.9-1.2) 10/01/17 11:01 APTT 32.7 Seconds (25.6-37.1) 10/01/17 11:01 Sodium 143 mmol/l (132-148) 10/03/17 05:55 Potassium 4.1 MMOL/L (3.6-5.0) 10/03/17 05:55 Chloride 102 mmol/L (98-107) 10/03/17 05:55 Carbon Dioxide 27 mmol/L (22-30) 10/03/17 05:55 Anion Gap 18 (10-20) 10/03/17 05:55 BUN 14 mg/dl (7-17) 10/03/17 05:55 Creatinine 0.7 mg/dl (0.7-1.2) 10/03/17 05:55 Est GFR ( Amer) > 60 10/03/17 05:55 Est GFR (Non-Af Amer) > 60 10/03/17 05:55 Random Glucose 120 mg/dL (65-105) H 10/03/17 05:55 Calcium 8.8 mg/dL (8.4-10.2) 10/03/17 05:55 Total Bilirubin 0.6 mg/dl (0.2-1.3) 10/01/17 11:01 AST 28 U/L (14-36) 10/01/17 11:01 ALT 41 U/L (9-52) 10/01/17 11:01 Alkaline Phosphatase 68 U/L (38-126) 10/01/17 11:01 Total Protein 8.3 G/DL (6.3-8.2) H 10/01/17 11:01 Albumin 4.6 g/dL (3.5-5.0) 10/01/17 11:01 Globulin 3.7 gm/dL (2.2-3.9) 10/01/17 11:01 Albumin/Globulin Ratio 1.2 (1.0-2.1) 10/01/17 11:01 - Hospital Course Hospital Course: 47 y/o F admitted to [facility] for intractable lower back pain/herniated disc, was evaluated by Neurosurgery and underwent lumbar laminectomy successfully. Patient remained stable during her stay and is tolerating PO, afebrile, progressed in PT sessions, VS WNL, pain is controlled with pain meds. Drainage was removed today by NeuroSx team and cleared by PT and PMD to be dc home and c/ w pT services as outpatient and F/u with NeuroSx. Discharge Exam - Head Exam Head Exam: ATRAUMATIC - Eye Exam Eye Exam: EOMI, PERRL - ENT Exam ENT Exam: Mucous Membranes Moist - Respiratory Exam Respiratory Exam: Clear to PA & Lateral, NORMAL BREATHING PATTERN, UNREMARKABLE - Cardiovascular Exam Cardiovascular Exam: REGULAR RHYTHM, +S1, +S2. absent: Gallop, Systolic Murmur - GI/Abdominal Exam GI & Abdominal Exam: Normal Bowel Sounds, Unremarkable - Extremities Exam Extremities exam: normal capillary refill, pedal pulses present - Back Exam Back exam: muscle spasm, paraspinal tenderness, vertebral tenderness - Neurological Exam Neurological exam: Alert, CN II-XII Intact, Oriented x3 - Psychiatric Exam Psychiatric exam: Normal Affect, Normal Mood - Skin Skin Exam: Normal Color, Warm Discharge Plan - Follow Up Plan Condition: STABLE Disposition: HOME/ ROUTINE Instructions: Radiculopathy (DC), Laminectomy (DC) Additional Instructions: follow up with your primary md 5-[address] Juares 5-[address] Arvizu may change dressing to lower back as needed. I was present during evaluation and discussed with Dr Montenegro re discharge plans Osito Saavedra M.D. Referrals: Benton Juares MD [Staff Provider] - Osito Saavedra MD [Staff Provider] - <Osito Saavedra - Last Filed: 10/05/17 15:43> Provider - Provider Date of Admission: 10/01/17 10:27 Attending physician: Osito Saavedra MD Hospital Course - Lab Results Lab Results: Most Recent Lab Values WBC 10.0 K/uL (4.8-10.8) D 10/03/17 05:55 RBC 4.05 Mil/uL (3.80-5.20) 10/03/17 05:55 Hgb 12.0 g/dL (12.0-16.0) D 10/03/17 05:55 Hct 35.3 % (34.0-47.0) 10/03/17 05:55 MCV 87.2 fl (81.0-99.0) D 10/03/17 05:55 MCH 29.5 pg (27.0-31.0) 10/03/17 05:55 MCHC 33.8 g/dL (33.0-37.0) 10/03/17 05:55 RDW 14.3 % (11.5-14.5) 10/03/17 05:55 Plt Count 322 K/uL (130-400) 10/03/17 05:55 MPV 7.1 fl (7.2-11.7) L 10/01/17 11:01 Neut % (Auto) 64.6 % (50.0-75.0) 10/01/17 11:01 Lymph % (Auto) 26.7 % (20.0-40.0) 10/01/17 11:01 [place] % (Auto) 5.3 % (0.0-10.0) 10/01/17 11:01 Eos % (Auto) 2.5 % (0.0-4.0) 10/01/17 11:01 Baso % (Auto) 0.9 % (0.0-2.0) 10/01/17 11:01 Neut # (Auto) 4.1 K/uL (1.8-7.0) 10/01/17 11:01 Lymph # (Auto) 1.7 K/uL (1.0-4.3) 10/01/17 11:01 [place] # (Auto) 0.3 K/uL (0.0-0.8) 10/01/17 11:01 Eos # (Auto) 0.2 K/uL (0.0-0.7) 10/01/17 11:01 Baso # (Auto) 0.1 K/uL (0.0-0.2) 10/01/17 11:01 PT 11.3 Seconds (9.8-13.1) 10/01/17 11:01 INR 1.0 (0.9-1.2) 10/01/17 11:01 APTT 32.7 Seconds (25.6-37.1) 10/01/17 11:01 Sodium 143 mmol/l (132-148) 10/03/17 05:55 Potassium 4.1 MMOL/L (3.6-5.0) 10/03/17 05:55 Chloride 102 mmol/L (98-107) 10/03/17 05:55 Carbon Dioxide 27 mmol/L (22-30) 10/03/17 05:55 Anion Gap 18 (10-20) 10/03/17 05:55 BUN 14 mg/dl (7-17) 10/03/17 05:55 Creatinine 0.7 mg/dl (0.7-1.2) 10/03/17 05:55 Est GFR ( Amer) > 60 10/03/17 05:55 Est GFR (Non-Af Amer) > 60 10/03/17 05:55 Random Glucose 120 mg/dL (65-105) H 10/03/17 05:55 Calcium 8.8 mg/dL (8.4-10.2) 10/03/17 05:55 Total Bilirubin 0.6 mg/dl (0.2-1.3) 10/01/17 11:01 AST 28 U/L (14-36) 10/01/17 11:01 ALT 41 U/L (9-52) 10/01/17 11:01 Alkaline Phosphatase 68 U/L (38-126) 10/01/17 11:01 Total Protein 8.3 G/DL (6.3-8.2) H 10/01/17 11:01 Albumin 4.6 g/dL (3.5-5.0) 10/01/17 11:01 Globulin 3.7 gm/dL (2.2-3.9) 10/01/17 11:01 Albumin/Globulin Ratio 1.2 (1.0-2.1) 10/01/17 11:01
[2017-10-04 15:49] VITALS: RESP 18
[2017-10-04 15:56] VITALS: BP 117/74; PULSE 85; TEMP 97.9; O2SAT 98
== END 2017-10-04 20:02 | disposition home or self-care (01) | DRG 516 ==
LOC: H.ER 09:06 → H.ERHOLD 10:27 → H.MEDSURG1 11:55
PROVIDERS: ADMIT Family Medicine; ATTEND Family Medicine
PROC: 01NB0ZZ Release Lumbar Nerve, Open Approach (ICD-10-PCS; principal; 2017-10-02 09:45)
DX: M47.26 Other spondylosis with radiculopathy, lumbar region (principal); K50.90 Crohn's disease, unspecified, without complications; M19.90 Unspecified osteoarthritis, unspecified site; G89.29 Other chronic pain; R20.2 Paresthesia of skin